=== PATIENT | male | born 1985 | race African-American/Black ===

== ENCOUNTER 2023-05-17 18:51 | Emergency (ER) | payer OTHER ==
[~2023-05-17] VITALS: Ht 177.8 cm; Wt 81.6 kg
[2023-05-17] MEDS ORDERED: FLUORESCEIN SODIUM 1 MG EA OD ONE (20:25)
[2023-05-17] MEDS ORDERED: TOBRAMYCIN0.31 OU (20:45)
[2023-05-17 21:09] VITALS: BP 139/95
== END 2023-05-17 21:09 | disposition home or self-care (01) ==
LOC: ED 18:51
DX: T15.01XA Foreign body in cornea, right eye, initial encounter (principal); W44.F9XA Other object of natural or organic material, entering into or through a natural orifice, initial encounter